=== PATIENT | male | born 1990 | race African-American/Black ===

== ENCOUNTER 2020-06-24 16:23 | Emergency (ER) | payer MEDICAID ==
[~2020-06-24] VITALS: Ht 200.7 cm; Wt 108.9 kg
[2020-06-24 16:39] VITALS: BP 143/87
--- NOTE | 2020-06-24 16:39 | NUR ---
ED Nurse Note: Patient walked in to ED c/o generalized rash x1 month, unk cause. Denies pain or itchiness. AAOx4, verbally responsive. No SOB, on room air. No fever. VSS.
--- NOTE | 2020-06-24 17:06 | Emergency Room Report ---
History of Present Illness General Chief Complaint: Skin Rash/Abscess Source: Patient Present Illness HPI 29-year-old male with no significant past medical history presents to the emergency department complaining of itchy rash that has been progressive x1 month. Patient reports spots in his hair where he is lost hair as well as on his face and torso. Pt. denies fevers, chills or swollen tender lymph nodes. Denies lesions/rashes elsewhere on the body. Denies new medications or body washes or creams. Denies swelling of the lips, tongue , throat or airway. Denies wheezing, or shortness of breath. Denies recent travel, recent illness or ill contacts. denies blisters, oral lesions, or sloughing of the skin. He denies liver, heart or kidney problems. Allergies: Coded Allergies: No Known Allergies (Unverified , 06/24/20) COVID-19 Screening Contact w/high risk pt: No Experienced COVID-19 symptoms?: No COVID-19 Testing performed WELDER EXPERIMENTAL: No Patient History Past Medical History: see triage record Past Surgical History: none Pertinent Family History: none Reviewed Nursing Documentation: PMH: Agreed; PSxH: Agreed Nursing Documentation-PMH Past Medical History: No Stated History Review of Systems All Other Systems: negative except mentioned in HPI Physical Exam Vital Signs Date Time Temp Pulse Resp B/P (MAP) Pulse Ox O2 Delivery O2 Flow Rate FiO2 06/24/20 16:36 98.2 97 18 143/87 (105) 99 Room Air Sp02 EP Interpretation: reviewed, normal General Appearance: no apparent distress, alert, GCS 15, non-toxic Head: normocephalic, atraumatic Eyes: bilateral eye normal inspection, bilateral eye PERRL ENT: hearing grossly normal, normal voice, other - NO lesions near the eyes or nose. No swelling of the lips or tongue Neck: full range of motion, other - no stridor Respiratory: chest non-tender, lungs clear, normal breath sounds, no wheezing, speaking full sentences Cardiovascular #1: regular rate, rhythm, no edema Musculoskeletal: back normal, normal range of motion, gait/station normal, non- tender Neurologic: alert, motor strength/tone normal, oriented x3, sensory intact, responsive, speech normal Psychiatric: judgement/insight normal Skin: rash - Multiple small discrete erythematous annular plaques that are well-circumscribed. No obvious blisters or vesicles. Several plaques have some overlying crusting. Lesions in the scalp are associated with alopecia. There is some confluence in the left chin area. Plaques appear on the scalp, forehead, left side of the chin/jaw area, neck and proximal portions of the upper extremities. Lymphatic: no adenopathy Medical Decision Making PA Attestation Dr. Neal Is my supervising Physician whom patient management has been discussed with. Diagnostic Impression: Primary Impression: Rash and other nonspecific skin eruption Additional Impression: Tinea barbae and tinea capitis ER Course 29-year-old male with no significant past medical history presents to the emergency department complaining of itchy rash that has been progressive x1 month. Patient reports spots in his hair where he is lost hair as well as on his face and torso. Pt. denies fevers, chills or swollen tender lymph nodes. Denies lesions/rashes elsewhere on the body. Denies new medications or body washes or creams. Denies swelling of the lips, tongue , throat or airway. Denies wheezing, or shortness of breath. Denies recent travel, recent illness or ill contacts. denies blisters, oral lesions, or sloughing of the skin. He denies liver, heart or kidney problems. Ddx considered but are not limited to cellulitis, scabies, shingles, varicella, dermatitis, urticaria, eczema, tinea, viral exanthem, SJS Vital signs: are WNL, pt. is afebrile H&PE are most consistent with Tinea barbae and capitis. with secondary alopecia and suspected cellulitis. Patient is nontoxic in appearance in no acute distress no evidence of impending airway compromise or anaphylaxis. ORDERS: none required at this time, the diagnosis is clinical ED INTERVENTIONS: None required at this time. --D/w pt. need for dermatology follow up for definitive diagnosis/identification. ALso that pt. will need liver function blood testing prior to receiving the rest of the course of antifungal pills that he will need. d/w pt. to avoid alcohol and tylenol while taking diflucan, explained increased risk of liver damage. DISCHARGE: At this time pt. is stable for d/c to home. Will provide printed patient care instructions, and any necessary prescriptions. Care plan and follow up instructions have been discussed with the patient prior to discharge. Last Vital Signs Date Time Temp Pulse Resp B/P (MAP) Pulse Ox O2 Delivery O2 Flow Rate FiO2 06/24/20 16:39 98.2 97 18 143/87 99 Room Air Status: improved Disposition: HOME, SELF-CARE Condition: Stable Scripts Ketoconazole (KETOCONAZOLE) 120 Ml Shampoo 1 APPLIC TP BID, #120 ML Prov: Reva Ro 06/24/20 Fluconazole* (DIFLUCAN*) 200 Mg Tablet 200 MG ORAL DAILY for 7 Days, #14 TAB 0 Refills Prov: eRva Ro 06/24/20 Cephalexin* (KEFLEX*) 500 Mg Capsule 500 MG ORAL EVERY 12 HOURS for 7 Days, #14 CAP 0 Refills Prov: Reva Ro 06/24/20 Referrals: Marielos Busch [facility] + [facility] Patient Instructions: Rash Additional Instructions: Take medications as directed. Do not drink alcohol while taking DIFLUCAN ( ANTIFUNGAL PILL ) In Combination these medications can cause Liver dam age/Failure. Follow up with a Primary Care Provider in 3-5 days for DERMATOLOGY REFERRAL, even if your symptoms have resolved. YOU WILL NEED 2-4 weeks of treatment. The first week is provided for you, you need to have liver function blood test before you can receive additional doses. This is done as an OUTPATIENT. --Please review list of primary care clinics, if you do not already have a primary care provider Return sooner to ED if new symptoms occur, or current symptoms become worse. - Please note that this Emergency Department Report was dictated using [employer] of audiology technology software, occasionally this can lead to erroneous entry secondary to interpretation by the dictation equipment. Reva Ro Jun 24, 2020 17:06
[2020-06-24] MEDS ORDERED: CEPHALEXIN500 MG ORAL (17:09)
[2020-06-24] MEDS ORDERED: DIFLUCAN200 MG ORAL (17:09)
[2020-06-24] MEDS ORDERED: KETOCONAZOLE120 ML TP (17:09)
[2020-06-24 17:35] VITALS: BP 135/74
--- NOTE | 2020-06-24 17:35 | NUR ---
ED Nurse Note: Pt cleared by ERPA for discharge. DC instructions/prescription was given and explained to pt and verbalized understanding of teachings. All medical deviecs such as ID band removed. Pt is AAO x4, ambulatory and left with all personal belongings.
== END 2020-06-24 17:35 | disposition home or self-care (01) ==
LOC: EMR 16:45
DX: R21 Rash and other nonspecific skin eruption (principal); B35.0 Tinea barbae and tinea capitis
CPT/HCPCS: 99282